=== PATIENT | female | born 1995 | race Caucasian/White ===

== ENCOUNTER 2016-11-28 00:14 | Emergency (ER) | payer BC, MEDICAID ==
[2016-11-28 00:32] VITALS: BP 119/72
--- NOTE | 2016-11-28 01:52 | ER Document Report ---
ED General - General Chief Complaint: numnbess Stated Complaint: NUMBNESS Time Seen by Provider: 11/28/16 01:45 Notes: Patient is a 21-year-old female without significant past medical history who presents with episodic paresthesias and a sensation of "coldness" over her left proximal anterior chest and left trapezius. No history of similar symptoms in the past. Nothing improves or worsens this symptom. She has not seen a primary doctor regarding today's concerns. She denies any true loss of sensation, weakness, headache, neck pain, changes in vision or altered mental status. Denies any known injury to the area. States it is improved at time of my assessment without intervention. TRAVEL OUTSIDE OF THE [place] IN LAST 30 DAYS: No - Related Data Allergies/Adverse Reactions: No Known Allergies Allergy (Unverified 08/13/11 14:50) Past Medical History - General Information source: Patient - Social History Smoking Status: Never Smoker Frequency of alcohol use: None Drug Abuse: None Lives with: Spouse/Significant other Family History: Hypertension, Other - asthma copd Patient has suicidal ideation: No Patient has homicidal ideation: No Pulmonary Medical History: Reports: Hx Pneumonia Renal/ Medical History: Denies: Hx Peritoneal Dialysis - Immunizations Immunizations up to date: Yes Hx Diphtheria, Pertussis, Tetanus Vaccination: Yes Review of Systems - Review of Systems Notes: Constitutional: Negative for fever. HENT: Negative for sore throat. Eyes: Negative for visual changes. Cardiovascular: Negative for chest pain. Respiratory: Negative for shortness of breath. Gastrointestinal: Negative for abdominal pain, vomiting or diarrhea. Genitourinary: Negative for dysuria. Musculoskeletal: Negative for back pain. Skin: Negative for rash. Neurological: Negative for headaches, positive for chest wall numbness 10 point ROS negative except as marked above and in HPI. Physical Exam - Vital signs Vitals: Temp Pulse Resp BP Pulse Ox 98.1 F 78 18 119/72 100 11/28/16 00:29 11/28/16 00:29 11/28/16 00:29 11/28/16 00:11/28/16 00:29 Interpretation: Normal Notes: PHYSICAL EXAMINATION: GENERAL: Well-appearing, well-nourished and in no acute distress. HEAD: Atraumatic, normocephalic. EYES: Pupils equal round and reactive to light, extraocular movements intact, sclera anicteric, conjunctiva are normal. ENT: nares patent, oropharynx clear without exudates. Moist mucous membranes. NECK: Normal range of motion, supple without lymphadenopathy LUNGS: Breath sounds clear to auscultation bilaterally and equal. No wheezes rales or rhonchi. HEART: Regular rate and rhythm without murmurs ABDOMEN: Soft, nontender, normoactive bowel sounds. No guarding, no rebound. No masses appreciated. EXTREMITIES: Normal range of motion, no pitting or edema. No cyanosis. NEUROLOGICAL: Face symmetric. Tongue protrudes midline. Extraocular motions intact. Pupils are 2 mm and equally reactive. Normal speech, normal gait. 5 out of 5 strength in both the distal and proximal upper and lower extremities bilaterally. Sensation is grossly intact throughout. Finger to nose testing normal. Pronator drift normal. No loss of sensation of the chest wall. PSYCH: Normal mood, normal affect. SKIN: Warm, Dry, normal turgor, no rashes or lesions noted. Course - Re-evaluation Re-evalutation: 11/28/16 01:50 Patient presents with paresthesias over the left chest not concerning for an acute central cord injury. She has no focal neurologic deficit on examination, has no sensory deficit on examination. Symptoms are waxing and waning and not at all consistent with an acute neurologic pathology to either her brain or spinal cord. She does not have any visual symptoms or recurrence of similar symptoms to suggest a presentation of MS. I do not believe any diagnostic labs or imaging are indicated at this time given her clinical history and normal examination. I discussed this with the patient at length at the bedside who is in agreement with not pursuing aggressive diagnostic tests at this time. At this time will discharge with return precautions and follow-up recommendations. Verbal discharge instructions given a the bedside and opportunity for questions given. Medication warnings reviewed. Patient is in agreement with this plan and has verbalized understanding of return precautions and the need for primary care follow-up in the next 24-72 hours. - Vital Signs Vital signs: Temp Pulse Resp BP Pulse Ox 98.1 F 78 18 119/72 100 11/28/16 00:29 11/28/16 00:29 11/28/16 00:29 11/28/16 00:29 11/28/16 00:29 Discharge - Discharge Clinical Impression: Paresthesias Condition: Good Disposition: HOME, SELF-CARE Additional Instructions: The exact cause of your symptoms today is unclear but is not likely to be from any acute life-threatening pathology or any injury to your brain or spinal cord. Please follow-up with your primary care doctor as needed. Return for any weakness, loss of sensation, severe headache, changes in her vision, or any other symptoms that are worrisome to you. Referrals: HAWA LINDSEY MD [Primary Care Provider] - Follow up as needed
== END 2016-11-28 02:15 | disposition home or self-care (01) ==
LOC: ER 00:14
DX: R20.9 Unspecified disturbances of skin sensation (principal)
CPT/HCPCS: 99283

== ENCOUNTER 2017-07-02 10:21 | Emergency (ER) | payer BC, OTHER ==
--- NOTE | 2017-07-02 11:14 | ER Document Report ---
ED General - General Chief Complaint: Chest Pain Stated Complaint: CHEST PAIN Time Seen by Provider: 07/02/17 10:47 Mode of Arrival: Ambulatory Information source: Patient Notes: 22 yr old female presents with complaints of left sided sharp pain radiating ot the neck and down the left tricep. Pt denies any other chest pain, denies any sob, denies any dvt or pe risk factors. there is a family hx of lung ca and she has had a resection of a mass from the left upper lobe 7 years ago. pt notes similar sharp pain last year seen and noted ot have muscular pain which resolved soon after. TRAVEL OUTSIDE OF THE [place] IN LAST 30 DAYS: No - HPI Onset: Just prior to arrival Onset/Duration: Sudden Quality of pain: Achy, Sharp Severity: Mild Pain Level: 1 Associated symptoms: Body/muscle aches Exacerbated by: Movement Relieved by: Other - hot shower Similar symptoms previously: Yes Recently seen / treated by doctor: Yes - Related Data Allergies/Adverse Reactions: No Known Allergies Allergy (Unverified 08/13/11 14:50) Past Medical History - Social History Smoking Status: Never Smoker Cigarette use (# per day): No Chew tobacco use (# tins/day): No Smoking Education Provided: No Frequency of alcohol use: None Drug Abuse: Marijuana Family History: Hypertension, Other - asthma copd Patient has suicidal ideation: No Patient has homicidal ideation: No Pulmonary Medical History: Reports: Hx Pneumonia Renal/ Medical History: Denies: Hx Peritoneal Dialysis - Immunizations Immunizations up to date: Yes Hx Diphtheria, Pertussis, Tetanus Vaccination: Yes Review of Systems - Review of Systems Notes: REVIEW OF SYSTEMS: CONSTITUTIONAL : Denies fever, chills, or sweats. Denies recent illness. EENT: Denies eye, ear, throat, or mouth pain or symptoms. Denies nasal or sinus congestion or discharge. Denies throat, tongue, or mouth swelling or difficulty swallowing. CARDIOVASCULAR: Admits to sharp pain RESPIRATORY: Denies cough, cold, or chest congestion. Denies shortness of breath, difficulty breathing, or wheezing. GASTROINTESTINAL: Denies abdominal pain or distention. Denies nausea, vomiting , or diarrhea. Denies blood in vomitus, stools, or per rectum. Denies black, tarry stools. Denies constipation. GENITOURINARY: Denies difficulty urinating, painful urination, burning, frequency, blood in urine, or discharge. FEMALE GENITOURINARY: Denies vaginal bleeding, heavy or abnormal periods, irregular periods. Denies vaginal discharge or odor. MUSCULOSKELETAL: Denies back or neck pain or stiffness. Denies joint pain or swelling. SKIN: Denies rash, lesions or sores. HEMATOLOGIC : Denies easy bruising or bleeding. LYMPHATIC: Denies swollen, enlarged glands. NEUROLOGICAL: Denies confusion or altered mental status. Denies passing out or loss of consciousness. Denies dizziness or lightheadedness. Denies headache. Denies weakness or paralysis or loss of use of either side. Denies problems with gait or speech. Denies sensory loss, numbness, or tingling. Denies seizures. PSYCHIATRIC: Denies anxiety or stress. Denies depression, suicidal ideation, or homicidal ideation. ALL OTHER SYSTEMS REVIEWED AND NEGATIVE. PHYSICAL EXAMINATION: GENERAL: Well-appearing, well-nourished and in no acute distress. HEAD: Atraumatic, normocephalic. EYES: Pupils equal round and reactive to light, extraocular movements intact, conjunctiva are normal. ENT: Nares patent, oropharynx clear without exudates. Moist mucous membranes. NECK: Normal range of motion, supple without lymphadenopathy LUNGS: Breath sounds clear to auscultation bilaterally and equal. No wheezes rales or rhonchi. HEART: Regular rate and rhythm without murmurs ABDOMEN: Soft, nontender, nondistended abdomen. No guarding, no rebound. No masses appreciated. Female : deferred Musculoskeletal: Normal range of motion, no pitting or edema. No cyanosis. Pain is reproducible upon palpation of the neck thoracic outlet region NEUROLOGICAL: Cranial nerves grossly intact. Normal speech, normal gait. Normal sensory, motor exams PSYCH: Normal mood, normal affect. SKIN: Warm, Dry, normal turgor, no rashes or lesions noted. Dictation was performed using [employer] voice recognition software Physical Exam - Vital signs Vitals: Temp Pulse Resp BP Pulse Ox 97.8 F 79 14 127/76 H 100 07/02/17 10:25 07/02/17 10:25 07/02/17 10:25 07/02/17 10:25 07/02/17 10:25 Course - Re-evaluation Re-evalutation: 07/02/17 11:14 Given that I can reproduce the pain in the patient has no risk factors for DVT or PE a very low suspicion for any life-threatening issues x-ray has been ordered to rule out any mass or injury of the lung itself. Overall she looks well is in no distress and believes that her symptoms are either musculoskeletal or secondary to anxiety 07/02/17 11:27 chest xray is well appearing, pt denies any fevers or chills. will dc home with close follow up After performing a Medical Screening Examination, I estimate there is LOW risk for RUPTURED ESOPHAGUS, PNEUMOTHORAX, PULMONARY EMBOLISM, ACUTE CORONARY SYNDROME, OR THORACIC AORTIC DISSECTION, thus I consider the discharge disposition reasonable. I have reevaluated this patient multiple times and no significant life threatening changes are noted. The patient and I have discussed the diagnosis and risks, and we agree with discharging home with close follow-up. We also discussed returning to the Emergency Department immediately if new or worsening symptoms occur. We have discussed the symptoms which are most concerning (e.g., bloody sputum, worsening pain or shortness of breath) that necessitate immediate return. - Vital Signs Vital signs: Temp Pulse Resp BP Pulse Ox 97.8 F 79 14 127/76 H 100 07/02/17 10:25 07/02/17 10:25 07/02/17 10:25 07/02/17 10:25 07/02/17 10:25 - Diagnostic Test Radiology reviewed: Image reviewed, Reports reviewed - no acute abnormality - EKG Interpretation by Me EKG shows normal: Sinus rhythm, [place], Intervals, QRS Complexes Discharge - Discharge Clinical Impression: Musculoskeletal chest pain Condition: Stable Disposition: HOME, SELF-CARE Instructions: Chest Pain of Unclear Cause ([facility]), Chest Wall Pain ([facility]) Forms: Return to Work Referrals: AIDA LOPEZ MD [ACTIVE STAFF] - Follow up tomorrow
--- NOTE | 2017-07-02 11:24 | RADIOLOGY REPORT (SQ) ---
EXAM DESCRIPTION: CHEST PA/LAT COMPLETED DATE/TIME: 07/02/2017 11:17 am REASON FOR STUDY: left sided chest pain, hx left upper lobe sx COMPARISON: 11/01/2014 EXAM PARAMETERS: NUMBER OF VIEWS: two views TECHNIQUE: Digital Frontal and Lateral radiographic views of the chest acquired. RADIATION DOSE: NA LIMITATIONS: none FINDINGS: LUNGS AND PLEURA: No opacities, masses or pneumothorax. No pleural effusion. MEDIASTINUM AND HILAR STRUCTURES: No masses or contour abnormalities. HEART AND VASCULAR STRUCTURES: Heart normal size. No evidence for failure. BONES: No acute findings. HARDWARE: None in the chest. OTHER: No other significant finding. IMPRESSION: NO SIGNIFICANT RADIOGRAPHIC FINDING IN THE CHEST. TECHNICAL DOCUMENTATION: JOB ID: [id number] [employer]- All Rights Reserved
[2017-07-02 11:31] VITALS: BP 109/80
--- NOTE | 2017-07-02 18:35 | EKG REPORT ---
SEVERITY:- NORMAL ECG - SINUS RHYTHM : Confirmed by: Grant Gaines 02-Jul-2017 18:34:48
== END 2017-07-02 11:31 | disposition home or self-care (01) ==
LOC: ER 10:21
DX: R07.9 Chest pain, unspecified (principal); Z87.01 Personal history of pneumonia (recurrent); Z80.1 Family history of malignant neoplasm of trachea, bronchus and lung
CPT/HCPCS: 71046; 93005; 93010; 99285